=== PATIENT | male | born 1990 | race Native Hawaiian/Other Pacific Islander ===

== ENCOUNTER 2019-12-16 10:46 | Emergency (ER) | payer OTHER ==
[~2019-12-16] VITALS: Ht 172.7 cm; Wt 59.0 kg
[2019-12-16 11:11] LABS: PLATELET COUNT 244 K/uL (142-355)
[2019-12-16 11:25] LABS: POTASSIUM 3.6 mmol/L (3.6-5.2)
[2019-12-17 08:14] VITALS: BP 124/78; TEMP 98.6
== END 2019-12-17 08:14 | disposition other institution (70) ==
LOC: ED 10:46
PROVIDERS: Emergency Medicine
DX: R44.0 Auditory hallucinations (principal); R45.851 Suicidal ideations
CPT/HCPCS: 80053; 80307; 80320; 80329; 81000; 85027; 93005; 99285